=== PATIENT | female | born 1965 | race Caucasian/White ===

== ENCOUNTER → 2021-07-14 | Day surgery (SDC) | payer BC ==
[2021-07-12 16:08] LABS: BASOPHILS % 0.4 % (0.0-1.0); EOSINOPHILS # (AUTO) 0.3 (0.0-0.4); EOSINOPHILS % 3.4 % (0.0-6.0); HEMOGLOBIN 11.3 g/dL (12.0-16.0); LYMPHOCYTES # (AUTO) 2.3 (1.0-3.2); LYMPHOCYTES % 30.3 % (18.0-39.1); MEAN CORPUSCULAR HEMOGLOBIN 29.4 pg (28-32); MEAN CORPUSCULAR HGB CONC 32.3 g/dL (31-35); MEAN CORPUSCULAR VOLUME 91.1 fL (81-99); MONOCYTES # (AUTO) 0.8 (0.2-0.8); MONOCYTES % 10.5 % (4.4-11.3); NEUTROPHILS # (AUTO) 4.1 (2.1-6.9); NEUTROPHILS % 55.1 % (38.7-80.0); PLATELET COUNT 265 x10e3/uL (140-360); RED BLOOD COUNT 3.84 x10e6/uL (3.6-5.1); RED CELL DISTRIBUTION WIDTH 14.6 % (11.7-14.4)
[2021-07-12 16:19] LABS: INR 0.96
[2021-07-12 16:20] LABS: PARTIAL THROMBOPLASTIN TIME 26.4 seconds (23.8-35.5)
[2021-07-12 16:24] LABS: ANION GAP 11.8 mmol/L (8-16); CREATININE, SERUM 0.68 mg/dL (0.57-1.11); POTASSIUM 3.8 mmol/L (3.5-5.1)
[~2021-07-14] MED LIST: ACETAMINOPHEN 325 MG TAB PO PRN; ALEVE220 M1 PO; CARISOPRODOL 350 MG TAB PO PRN; Cefazolin 1 GM in SODIUM CHLORIDE 0.9% 50ML 50 ML IV SCH; FENTANYL CITRATE/PF 100MCG/2 ML INJ ONE; GABAPENTIN 300 MG CAP PO SCH; HYDROCODON-ACE1 EA12 PO; HYDROMORPHONE 2MG/ML 2 MG/ML ML IV PRN; LACTATED RINGER'S 1,000 ML IV SCH; LIDOCAINE 1% W/EPINEPHRINE 20 ML VIAL ONE; LINACLOTIDE 72 MCG PO SCH; LINZESS72 MCG PO; MAGNESIUM/ALUMINUM/SIMETHICONE 30 ML UDC PO PRN; MORPHINE SULFATE 5 MG/ML VIAL IM PRN; MORPHINE SULFATE INJ 4 MG/ML INJ 1ML IM PRN; NAPROSYN500 MG PO; NAPROXEN 250 MG TAB PO PRN; NEURONTIN300 MG PO; ONDANSETRON HCL INJ 2MG/ML 2ML 2 MG/ML VIAL IV PRN; OXYCODONE/ACETAMINOPHEN 5-325 1 EACH TABLET PO PRN; PROMETHAZINE HCL (IM) 25 MG/ML VIAL IM PRN; THROMBIN FOR SOLN 5,000 UNIT VIAL ONE; Vancomycin IV 1 GM VIAL ONE; ZOLPIDEM TARTRATE 5 MG TAB PO PRN
[2021-07-14 12:50] VITALS: BP 115/67
== END | disposition home or self-care (01) ==
LOC: OR 06:20
PROVIDERS: ATTEND Neurological Surgery
DX: M51.16 Intervertebral disc disorders with radiculopathy, lumbar region (principal); Z01.810 Encounter for preprocedural cardiovascular examination; Z01.812 Encounter for preprocedural laboratory examination; Z01.818 Encounter for other preprocedural examination; Z20.822 Contact with and (suspected) exposure to COVID-19; K58.9 Irritable bowel syndrome, unspecified
CPT/HCPCS: 36415; 63047; 71046; 72020; 80048; 85025; 85610; 85730; 86850; 86900; 88304; 88311; 93005; J0690; J3010; J3370; U0002